=== PATIENT | male | born 1940 | race Caucasian/White ===

== ENCOUNTER 2016-09-04 09:42 | Inpatient (IN) | payer MEDICARE, BC ==
[2016-09-04] MEDS ORDERED: Sodium Chloride 0.9% 10 ML Syringe FLUSH PRN ×3 (10:12→13:20)
[2016-09-04] MEDS ORDERED: Lactated Ringers 1,000 ML IV SCH ×2 (10:15→11:45)
[2016-09-04] MEDS ORDERED: Albuterol/Ipratropium 3.0-0.5 MG/3 ML Neb Soln NEB ONE (10:44)
--- NOTE | 2016-09-04 10:48 | EDM.PDOC ---
ED HISTORY OF PRESENT ILLNESS - General Chief Complaint: Respiratory Problem Stated Complaint: SHORTNESS OF BREATH,WEAKNESS,ASTHMA Time Seen by Provider: 09/04/16 10:11 Source: Reports: Patient, Old records, RN notes reviewed History Limitations: Reports: No limitations - History of Present Illness INITIAL COMMENTS - FREE TEXT/NARRATIVE: 75-year-old gentleman presents emergency department today for ongoing shortness of breath he is recently returned from [place] he's been ill for about one month has tried a variety of antibiotics including azithromycin and Bactrim as well as inhalers he continues to be short of breath no overt fevers he 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 but is unsure - Related Data Allergies/ADRs: Allergies Allergy/AdvReac Type Severity Reaction Status Date / Time atorvastatin Allergy Cannot Verified 09/16/13 07:11 Remember Penicillins Allergy Cannot Verified 09/16/13 07:11 Remember simvastatin Allergy Cannot Verified 09/16/13 07:11 Remember Home Meds: Home Meds ALPRAZolam [Xanax] 0.25 mg PO DAILY 09/04/16 [History] Albuterol Sulfate [Proair Respiclick] 2 puff INH ASDIRECTED 09/04/16 [History] Albuterol/Ipratropium [DuoNeb 3.0-0.5 MG/3 ML] 3 ml INH BID 09/04/16 [History] Apixaban [Eliquis] 5 mg PO BID 09/04/16 [History] Aspirin 325 mg PO DAILY 09/04/16 [History] Azithromycin [Zithromax] 250 mg PO DAILY 09/04/16 [History] Benazepril [Lotensin] 20 mg PO DAILY 09/04/16 [History] Benzonatate [Tessalon Perles] 200 mg PO TID PRN 09/04/16 [History] Fexofenadine [Lynn] 180 mg PO DAILY 09/04/16 [History] Fluticasone Furoate [Arnuity Ellipta] 1 puff INH DAILY 09/04/16 [History] Levofloxacin 500 mg PO DAILY 09/04/16 [History] Levothyroxine Sodium [Synthroid] 200 mcg PO DAILY 09/04/16 [History] Metoprolol Tartrate 12.5 mg PO BID 09/04/16 [History] Montelukast [Singulair] 10 mg PO DAILY 09/04/16 [History] Multivitamin [Multivitamins] 1 tab PO DAILY 09/04/16 [History] Pitavastatin Calcium [Livalo] 1 mg PO DAILY 09/04/16 [History] Prednisone [IJD: predniSONE] 20 mg PO BID 09/04/16 [History] Sotalol HCl [Sotalol AF] 120 mg PO BID 09/04/16 [History] Sulfamethoxazole/Trimethoprim [Sulfamethoxazole-Tmp Ds Tablet] 1 tab PO BID 06/22 [History] Tamsulosin [Flomax] 0.4 mg PO DAILY 09/04/16 [History] Past Medical History HEENT History: Reports: Cataract Cardiovascular History: Reports: Afib, High cholesterol, Hypertension Respiratory History: Reports: Asthma Musculoskeletal History: Reports: Back pain, chronic Endocrine/Metabolic History: Reports: Hypothyroidism - Past Surgical History GI Surgical History: Reports: Appendectomy, Cholecystectomy Musculoskeletal Surgical History: Reports: Knee replacement Other Musculoskeletal Surgeries/Procedures:: fused neck Social & Family History - Tobacco Use Smoking Status *Q: Never Smoker - Caffeine Use Caffeine Use: Reports: Coffee - Recreational Drug Use Recreational Drug Use: No ED ROS GENERAL - Review of Systems Review Of Systems: See Below Constitutional: Reports: weakness, night sweats. Denies: fever, chills HEENT: Reports: No symptoms Respiratory: Reports: Shortness of Breath, Wheezing, Cough, Sputum Cardiovascular: Reports: No symptoms GI/Abdominal: Reports: No symptoms : Reports: no symptoms Musculoskeletal: Reports: no symptoms Skin: Reports: no symptoms Neurological: Reports: No Symptoms ED EXAM, GENERAL - Physical Exam Exam: See Below Free Text/Narrative:: General: Male, not in any distress, alert and oriented x3 HEENT: head is atraumatic normocephalic, eyes pupils equal round reactive to light, sclera clear no conjunctivitis appreciated. Ears tympanic membranes clear and mcfadden landmarks and light reflex are present bilaterally canals are clear. Nose no septal deviation, nares are clear, no blood present. Mouth mucosa is moist and pink no erythema or exudate noted in soft palate, tongue is midline uvula is midline, dentition is intact. Neck: Supple no thyromegaly no tracheal deviation. Nodes: Cervical nodes subclavicular nodes nontender no palpable lymphadenopathy noted. Lungs: Wheezing can be appreciated on the inspiratory and expiratory bilaterally CV: Irregularly irregular rate and rhythm S1 and S2 appreciated no murmurs rubs or gallops noted. Abdomen: Soft, nontender, no palpable masses or organomegaly appreciated, no distention no guarding bowel sounds are present, . Neuro: Cranial nerves II through XII grossly intact Skin: Warm and dry, intact Extremities: No lower extremity edema appreciated, Course - Vital Signs Last Recorded V/S: Last Vital Signs Temp 96.6 F 09/04/16 09:52 Pulse 76 09/04/16 12:07 Resp 15 09/04/16 12:07 BP 108/58 L 09/04/16 12:07 Pulse Ox 95 09/04/16 12:07 - Orders/Labs/Meds Orders: Active Orders 24 hr Category Date Time Status Peripheral IV Care [RC] . DIRECTED Care 09/04/16 10:13 Inactive COCCIDIOIDES,AB IGG AND IGM [REF] Routine Lab 09/04/16 10:55 Received CULTURE BLOOD [BC] Urgent Lab 09/04/16 10:25 Received CULTURE BLOOD [BC] Urgent Lab 09/04/16 10:30 Received UA W/MICROSCOPIC [URIN] Stat Lab 09/04/16 10:12 Uncollected Blood Culture x2 Reflex Set [OM.PC] Urgent Oth 09/04/16 10:12 Ordered Medication Orders Acetaminophen (Tylenol) 650 mg PO Q4H PRN PRN Reason: Pain (Mild 1-3)/fever Albuterol (Proventil Neb Soln) 2.5 mg NEB Q4H PRN PRN Reason: Shortness Of Breath/wheezing Albuterol/Ipratropium (Duoneb 3.0-0.5 Mg/3 Ml) 3 ml NEB QID KACEY Docusate Sodium (Colace) 100 mg PO BID PRN PRN Reason: Constipation Enoxaparin Sodium (Lovenox) 40 mg SUBCUT DAILY [facility] Sodium Chloride (Normal Saline) 1,000 mls @ 125 mls/hr IV ASDIRECTED KACEY Magnesium Hydroxide (Milk Of Magnesia) 30 ml PO Q12H PRN PRN Reason: Constipation Ondansetron HCl (Zofran) 4 mg IV Q4H PRN PRN Reason: Nausea/Vomiting Oxycodone HCl (Oxycodone) 5 mg PO Q4H PRN PRN Reason: Pain (moderate 4-6) Polyethylene Glycol (Miralax) 17 gm PO DAILY PRN PRN Reason: Constipation Sodium Chloride (Saline Flush) 10 ml FLUSH ASDIRECTED PRN PRN Reason: Keep Vein Open Labs: Laboratory Tests 09/04/16 09/04/16 09/04/16 Range/Units 10:12 10:15 10:15 WBC 19.9 H (4.5-11.0) K/uL RBC 4.67 (4.30-5.90) M/uL Hgb 14.7 (12.0-15.0) g/dL Hct 43.2 (40.0-54.0) % MCV 93 (80-98) fL MCH 32 H (27-31) pg MCHC 34 (32-36) % Plt Count 342 (150-400) K/uL Neut % (Auto) 86 H (36-66) % Lymph % (Auto) 6 L (24-44) % [place] % (Auto) 6 (2-6) % Eos % (Auto) 1 L (2-4) % Baso % (Auto) 0 (0-1) % PT 12.4 H (9.5-12.0) sec INR 1.16 (0.80-1.20) APTT 27.8 (27.0-36.0) sec Puncture Site Lt radial ABG pH 7.432 (7.350-7.450) ABG pCO2 31.3 L (35.0-42.0) mmHg ABG pO2 82.9 (75.0-100.0) mmHg ABG HCO3 20.5 L (22.0-26.0) mmol/L ABG Total CO2 17.9 L (23.0-27.0) mmol/L ABG O2 Saturation 96.3 (95.0-98.0) % ABG O2 Content 18.8 (15.0-23.0) %vol ABG Base Excess -2.3 mm/L ABG Hemoglobin 14.1 (13.5-18.0) g/dL ABG Oxyhemoglobin 94.8 % ABG Carboxyhemoglobin 1.1 (0.0-1.6) % ABG Methemoglobin 0.5 % Malcom Test Passed O2 Delivery Device Nasal cannula Oxygen Flow Rate 3 L Sodium (140-148) mmol/L Potassium (3.6-5.2) mmol/L Chloride (100-108) mmol/L Carbon Dioxide (21-32) mmol/L Anion Gap (5.0-14.0) mmol/L BUN (7-18) mg/dL Creatinine (0.8-1.3) mg/dL Est Cr Clr Drug Dosing mL/min Estimated GFR (MDRD) (>60) Glucose (74-106) mg/dL Lactic Acid (0.4-2.0) mmol/L Calcium (8.5-10.1) mg/dL Total Bilirubin (0.2-1.0) mg/dL AST (15-37) U/L ALT (12-78) U/L Alkaline Phosphatase (46-116) U/L Troponin I (0.000-0.056) ng/mL Total Protein (6.4-8.2) g/dL Albumin (3.4-5.0) g/dL Globulin (2.3-3.5) g/dL Albumin/Globulin Ratio (1.2-2.2) 09/04/16 09/04/16 Range/Units 10:15 10:15 WBC (4.5-11.0) K/uL RBC (4.30-5.90) M/uL Hgb (12.0-15.0) g/dL Hct (40.0-54.0) % MCV (80-98) fL MCH (27-31) pg MCHC (32-36) % Plt Count (150-400) K/uL Neut % (Auto) (36-66) % Lymph % (Auto) (24-44) % [place] % (Auto) (2-6) % Eos % (Auto) (2-4) % Baso % (Auto) (0-1) % PT (9.5-12.0) sec INR (0.80-1.20) APTT (27.0-36.0) sec Puncture Site ABG pH (7.350-7.450) ABG pCO2 (35.0-42.0) mmHg ABG pO2 (75.0-100.0) mmHg ABG HCO3 (22.0-26.0) mmol/L ABG Total CO2 (23.0-27.0) mmol/L ABG O2 Saturation (95.0-98.0) % ABG O2 Content (15.0-23.0) %vol ABG Base Excess mm/L ABG Hemoglobin (13.5-18.0) g/dL ABG Oxyhemoglobin % ABG Carboxyhemoglobin (0.0-1.6) % ABG Methemoglobin % Malcom Test O2 Delivery Device Oxygen Flow Rate L Sodium 133 L (140-148) mmol/L Potassium 4.4 (3.6-5.2) mmol/L Chloride 98 L (100-108) mmol/L Carbon Dioxide 27 (21-32) mmol/L Anion Gap 12.4 (5.0-14.0) mmol/L BUN 24 H (7-18) mg/dL Creatinine 1.1 (0.8-1.3) mg/dL Est Cr Clr Drug Dosing 59.90 mL/min Estimated GFR (MDRD) > 60 (>60) Glucose 141 H (74-106) mg/dL Lactic Acid 1.4 (0.4-2.0) mmol/L Calcium 7.9 L (8.5-10.1) mg/dL Total Bilirubin 1.5 H (0.2-1.0) mg/dL AST 25 (15-37) U/L ALT 62 (12-78) U/L Alkaline Phosphatase 63 (46-116) U/L Troponin I < 0.017 (0.000-0.056) ng/mL Total Protein 6.7 (6.4-8.2) g/dL Albumin 3.0 L (3.4-5.0) g/dL Globulin 3.7 H (2.3-3.5) g/dL Albumin/Globulin Ratio 0.8 L (1.2-2.2) Meds: Medications Generic Name Dose Route Start Last Admin Trade Name Freq PRN Reason Stop Dose Admin Acetaminophen 650 mg 09/04/16 13:20 Tylenol PO Q4H PRN Pain (Mild 1-3)/fever Albuterol 2.5 mg 09/04/16 13:20 Proventil Neb Soln NEB Q4H PRN Shortness Of Breath/wheezing Albuterol/Ipratropium 3 ml 09/04/16 16:00 Duoneb 3.0-0.5 Mg/3 Ml NEB QID KACEY Docusate Sodium 100 mg 09/04/16 13:20 Colace PO BID PRN Constipation Enoxaparin Sodium 40 mg 09/04/16 13:20 Lovenox SUBCUT DAILY KACEY Sodium Chloride 1,000 mls @ 125 mls/hr 09/04/16 13:20 Normal Saline IV ASDIRECTED KACEY Magnesium Hydroxide 30 ml 09/04/16 13:20 Milk Of Magnesia PO Q12H PRN Constipation Ondansetron HCl 4 mg 09/04/16 13:20 Zofran IV Q4H PRN Nausea/Vomiting Oxycodone HCl 5 mg 09/04/16 13:20 Oxycodone PO Q4H PRN Pain (moderate 4-6) Polyethylene Glycol 17 gm 09/04/16 13:20 Miralax PO DAILY PRN Constipation Sodium Chloride 10 ml 09/04/16 13:20 Saline Flush FLUSH ASDIRECTED PRN Keep Vein Open Discontinued Medications Generic Name Dose Route Start Last Admin Trade Name Freq PRN Reason Stop Dose Admin Albuterol/Ipratropium 3 ml 09/04/16 10:44 09/04/16 10:51 Duoneb 3.0-0.5 Mg/3 Ml NEB 09/04/16 10:45 3 ml ONETIME ONE Administration Lactated Ringer's 1,000 mls @ 999 mls/hr 09/04/16 10:15 09/04/16 10:20 Ringers, Lactated IV 999 mls/hr ASDIRECTED KACEY Administration Lactated Ringer's 1,000 mls @ 125 mls/hr 09/04/16 11:45 09/04/16 11:48 Ringers, Lactated IV 125 mls/hr ASDIRECTED KACEY Administration Sodium Chloride 75 mls @ 3.5 mls/sec 09/04/16 12:15 09/04/16 12:34 Normal Saline IV 09/04/16 13:00 3.5 mls/sec ASDIRECTED KACEY Administration Iopamidol 100 ml 09/04/16 12:13 09/04/16 12:35 Isovue-300 (61%) IV 09/05/16 12:14 100 ml . DIRECTED PRN Administration RADIOLOGY EXAM Sodium Chloride 10 ml 09/04/16 10:12 09/04/16 10:20 Saline Flush FLUSH 10 ml ASDIRECTED PRN Administration Keep Vein Open Sodium Chloride 10 ml 09/04/16 12:13 09/04/16 12:33 Saline Flush FLUSH 10 ml ONETIME PRN Administration per radiology protocol - Re-Assessments/Exams Free Text/Narrative Re-Assessment/Exam: 09/04/16 12:15 curb 65 score is 4 Departure - Departure Time of Disposition: 13:23 Disposition: Admitted As Inpatient 64 Condition: fair Clinical Impression: SOB (shortness of breath) - My Orders Last 24 Hours: My Active Orders 09/04/16 10:12 UA W/MICROSCOPIC [URIN] Stat Blood Culture x2 Reflex Set [OM.PC] Urgent 09/04/16 10:13 Peripheral IV Care [RC] . DIRECTED 09/04/16 10:25 CULTURE BLOOD [BC] Urgent 09/04/16 10:30 CULTURE BLOOD [BC] Urgent 09/04/16 10:55 COCCIDIOIDES,AB IGG AND IGM [REF] Routine - Assessment/Plan Last 24 Hours: My Active Orders 09/04/16 10:12 UA W/MICROSCOPIC [URIN] Stat Blood Culture x2 Reflex Set [OM.PC] Urgent 09/04/16 10:13 Peripheral IV Care [RC] . 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 [place] Manifestations = hypoxia Location of injury = home Lab values = WBC elevated 19.9 consistent with a leukocytosis, INR stable at 1.16 ABG reveals pH of 7.43 PCO2 31.3 a PO2 of 82.9 bicarbonate 20.5 sodium low at 133 consistent hyponatremia BUN elevated at 24 lactic acid normal at 1.4 total bilirubin elevated 1.5 consistent hyperbilirubinemia, troponin is negative albumin low at 2.0 consistent hypoalbuminemia chest x-ray unremarkable per radiology read Plan Discussed the case with hospitalist it professional he agreed to evaluate the patient emergency department for admission Patient was in agreement with the plan all questions were answered, This note was dictated using [employer] voice recognition software please call with any questions.
--- NOTE | 2016-09-04 11:16 | CR ---
Heart size within normal limits. Streaky density right lung base. Streaky density left lung base wit h faint nodular density left sixth rib anteriorly. It has some central lucency to it. Overall findin gs may be compatible with atelectasis rather than infiltrate but recommend short-term radiographic f ollow-up for clearing of the left lung nodularity in 2 weeks. If this persists then recommend CT. Kina anna discussed with Officer.
[2016-09-04] MEDS ORDERED: Iopamidol 612 MG/ML 100 ML Bottle IV PRN (12:13)
[2016-09-04] MEDS ORDERED: Sodium Chloride 0.9% 75 ML IV SCH (12:15)
--- NOTE | 2016-09-04 13:02 | CT ---
CT chest Indication: Hypoxia. Total DLP 475. Comparison: 12/09/2013 Findings: Mildly enlarged AP window lymph node. A few small prevascular space lymph nodes and right paratracheal space lymph nodes are new compared to prior. No main pulmonary artery embolus. There is hazy groundglass density left upper lobe with a small cavitary lesion at 6 mm. Micronodularity is e vident within the left upper lobe as well. Primary nodule superior subareolar right lower lobe is ne w. This measures 7 mm. Atelectasis within the lung bases. No focal consolidation. Adrenal glands are within normal limits. Fatty infiltration of the pancreas. Fatty infiltration of the liver. Impression: 1. Micronodularity within the left upper lobe and hazy groundglass density along with a small cavita ry lesion. Any skin compatible with fungal infection. 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 Recommend CT follow- up, short-term
[2016-09-04] MEDS ORDERED: Acetaminophen 325 MG Tab PO PRN (13:20)
[2016-09-04] MEDS ORDERED: Polyethylene Glycol 3350 Powder 17 GM Packet PO PRN (13:20)
[2016-09-04] MEDS ORDERED: oxyCODONE 5 MG Tab PO PRN (13:20)
[2016-09-04] MEDS ORDERED: Ondansetron 4 MG/2 ML SDV IV PRN (13:20)
[2016-09-04] MEDS ORDERED: Albuterol 0.083% 2.5 MG/3 ML Neb Soln NEB PRN ×2 (13:20→16:33)
[2016-09-04] MEDS ORDERED: Docusate Sodium 100 MG Cap PO PRN (13:20)
[2016-09-04] MEDS ORDERED: Sodium Chloride 0.9% 1,000 ML IV SCH (13:20)
[2016-09-04] MEDS ORDERED: Magnesium Hydroxide 400 MG/5 ML Susp 30 ML Cup PO PRN (13:20)
[2016-09-04] MEDS ORDERED: Enoxaparin 40 MG/0.4 ML Syringe SUBCUT SCH (14:00)
[2016-09-04] MEDS: Albuterol/Ipratropium 3.0-0.5 MG/3 ML Neb Soln NEB SCH ×2 (14:41→21:12)
[2016-09-04] MEDS ORDERED: Benzonatate 100 MG Cap PO PRN (16:38)
[2016-09-04] MEDS: Fluconazole/Normal Saline 400 MG in Premix Bag 1 BAG IV SCH (17:40)
--- NOTE | 2016-09-04 19:29 | PCM.HP ---
H&P History of Present Illness - General Date of Service: 09/04/16 Admit Problem/Dx: Admission Diagnosis/Problem Admission Diagnosis/Problem Hypoxia Source of Information: Patient, Family, Provider, RN notes reviewed History Limitations: Reports: No limitations - History of Present Illness Initial Comments - Free Text/Narative: Mr. Christianson is a 75-year-old gentleman who is admitted through the emergency department with symptoms of progressive weakness, fever, sweats, shortness of breath, and hypoxia. He has not felt well since late June or early July, at that time he developed symptoms of respiratory tract infection and was seen for evaluation in [place]. He was given a course of oral antibiotic therapy with azithromycin and when he returned for his followup appointment one week later felt significantly improved. He did well for another week but then developed recurrent symptoms with shortness of breath and cough. About the time his symptoms recurred he and his were in the process of returning to [place] for the summer months. After arriving back in [place] they did go to see his primary care provider Dr. Santizo, a second course of antibiotics were prescribed but unfortunately over the past week his symptoms have progressed. Because of persistent shortness of breath he presented to the emergency department for further evaluation and management. Hypoxia was documented on initial assessment, vital signs were otherwise stable. White blood cell count is normal, chest x-ray suggests infiltrate in the left lung. CT scan of the chest was obtained and did show evidence of infiltrate as well as a very small cavitary lesion, findings suggestive of coccidiomycosis. Serology has been sent to evaluate for underlying fungal infection. - Related Data Allergies/Adverse Reactions: Allergies Allergy/AdvReac Type Severity Reaction Status Date / Time atorvastatin Allergy Cannot Verified 09/16/13 07:11 Remember Penicillins Allergy Cannot Verified 09/16/13 07:11 Remember simvastatin Allergy Cannot Verified 09/16/13 07:11 Remember Home Medications: Home Meds ALPRAZolam [Xanax] 0.25 mg PO DAILY 09/04/16 [History] Albuterol Sulfate [Proair Respiclick] 2 puff INH ASDIRECTED 09/04/16 [History] Albuterol/Ipratropium [DuoNeb 3.0-0.5 MG/3 ML] 3 ml INH BID 09/04/16 [History] Apixaban [Eliquis] 5 mg PO BID 09/04/16 [History] Aspirin 325 mg PO DAILY 09/04/16 [History] Azithromycin [Zithromax] 250 mg PO DAILY 09/04/16 [History] Benazepril [Lotensin] 20 mg PO DAILY 09/04/16 [History] Benzonatate [Tessalon Perles] 200 mg PO TID PRN 09/04/16 [History] Fexofenadine [Lynn] 180 mg PO DAILY 09/04/16 [History] Fluticasone Furoate [Arnuity Ellipta] 1 puff INH DAILY 09/04/16 [History] Levofloxacin 500 mg PO DAILY 09/04/16 [History] Levothyroxine Sodium [Synthroid] 200 mcg PO DAILY 09/04/16 [History] Metoprolol Tartrate 12.5 mg PO BID 09/04/16 [History] Montelukast [Singulair] 10 mg PO DAILY 09/04/16 [History] Multivitamin [Multivitamins] 1 tab PO DAILY 09/04/16 [History] Pitavastatin Calcium [Livalo] 1 mg PO DAILY 09/04/16 [History] Prednisone [IJD: predniSONE] 20 mg PO BID 09/04/16 [History] Sotalol HCl [Sotalol AF] 120 mg PO BID 09/04/16 [History] Sulfamethoxazole/Trimethoprim [Sulfamethoxazole-Tmp Ds Tablet] 1 tab PO BID 06/22 [History] Tamsulosin [Flomax] 0.4 mg PO DAILY 09/04/16 [History] Past Medical History HEENT History: Reports: Cataract Cardiovascular History: Reports: Afib, High cholesterol, Hypertension Respiratory History: Reports: Asthma Musculoskeletal History: Reports: Back pain, chronic Endocrine/Metabolic History: Reports: Hypothyroidism Oncologic (Cancer) History: Reports: Prostate Other Oncologic History: 2014 - Past Surgical History GI Surgical History: Reports: Appendectomy, Cholecystectomy Musculoskeletal Surgical History: Reports: Knee replacement Other Musculoskeletal Surgeries/Procedures:: fused neck Oncologic Surgical History: Reports: Other (see below) Other Oncologic Surgeries/Procedures: readiation to prostate Social & Family History - Family History HEENT: Reports: Cataract, Hearing impairment Cardiac: Reports: CAD Musculoskeletal: Reports: Arthritis, Back pain, chronic Neurological: Reports: Neuropathy, diabetic Endocrine/Metabolic: Reports: Diabetes, type II, Hypothyroidism - Tobacco Use Smoking Status *Q: Never Smoker Second Hand Smoke Exposure: No - Caffeine Use Caffeine Use: Reports: Coffee Other Caffeine Use: 1cup/day - Alcohol Use Date of Last Drink: 06/29/16 Time of Last Drink: 20:00 - Recreational Drug Use Recreational Drug Use: No H&P Review of Systems - Review of Systems: Review Of Systems: See Below General: Reports: fever, chills, weakness, night sweats, diaphoresis, decreased appetite HEENT: Reports: no symptoms Pulmonary: Reports: Shortness of Breath, Cough, Sputum. Denies: Wheezing, Pleuritic Chest Pain, Hemoptysis Cardiovascular: Reports: dyspnea on exertion. Denies: chest pain, palpitations , orthopnea, PND, edema, lightheadedness Gastrointestinal: Reports: No symptoms Genitourinary: Reports: no symptoms Musculoskeletal: Reports: no symptoms Skin: Reports: no symptoms Psychiatric: Reports: no symptoms Neurological: Reports: No Symptoms Hematologic/Lymphatic: Reports: no symptoms Immunologic: Reports: no symptoms Exam - Exam Exam: See Below - Vital Signs Vital Signs: Last Vital Signs Temp 99.0 F 09/04/16 13:32 Pulse 86 09/04/16 14:43 Resp 16 09/04/16 13:32 BP 109/62 09/04/16 13:32 Pulse Ox 96 09/04/16 14:43 Weight: 229 lb - Exam Quality Assessment: supplemental oxygen, DVT prophylaxis General: alert, oriented, cooperative, moderate distress HEENT: Conjunctiva clear, Hearing intact, Mucosa moist & pink, Nares patent, Normal nasal septum, Posterior pharynx clear, Pupils equal, Pupils reactive Neck: supple, trachea midline, +2 carotid pulse wo bruit Lungs: Normal respiratory effort, Rhonchi. No: Decreased breath sounds, Crackles, Rales, Rub, Stridor Cardiovascular: regular rate, normal S1, irregular rhythm. No: bradycardia, tachycardia, systolic murmur, diastolic murmur Abdomen: normal bowel sounds, soft Back Exam: normal inspection, full range of motion, NT Extremities: 3, normal inspection, 10 Skin: warm, dry, intact Neurological: cranial nerves intact, strength equal bilateral, normal speech, normal tone, sensation intact. No: focal deficit Neuro Extensive - Mental Status: alert, oriented x3, normal mood/affect, normal cognition, memory intact - Patient Data Lab Results last 24 hrs: Laboratory Results - last 24 hr 09/04/16 Range/Units 13:23 Urine Color Yellow Urine Appearance Clear Urine pH 7.0 (4.5-8.0) Ur Specific [place] 1.005 L (1.008-1.030) Urine Protein Negative (NEGATIVE) mg/dL Urine Glucose (UA) Normal (NEGATIVE) mg/dL Urine Ketones Negative (NEGATIVE) mg/dL Urine Occult Blood Negative (NEGATIVE) Urine Nitrite Negative (NEGAITVE) Urine Bilirubin Negative (NEGATIVE) Urine Urobilinogen Normal (NORMAL) mg/dL Ur Leukocyte Esterase Negative (NEGATIVE) Urine RBC 0-5 (0-5) Urine WBC 0-5 (0-5) Ur Epithelial Cells Few Amorphous Sediment Not seen Urine Bacteria Few Urine Mucus Few Result Diagrams: 09/04/16 10:15 09/04/16 10:15 *Q Meaningful Use (ADM) - VTE *Q VTE Criteria *Q: VTE Pharmacological Contraindications *Q: High INR Value - VTE Risk Assess *Q Each Risk Factor Represents 1 Point: Obesity (BMI greater than 30), Serious Lung Disease Including Pneumonia, Less than 1 Month Total Score 1 Point Risk Factors: 2 Each Risk Factor Represents 2 Points: None Total Score 2 Point Risk Factors: 0 Each Risk Factor Represents 3 Points: Age 75 Years or Greater Total Score 3 Point Risk Factors: 3 Each Risk Factor Represents 5 Points: None Total Score 5 Point Risk Factors: 0 Venous Thromboembolism Risk Factor Score *Q: 5 - Stroke *Q Stroke Criteria *Q: - AMI *Q AMI Criteria *Q: Problem List Initiated/Reviewed/Updated: Yes Orders Last 24hrs: Active Orders 24 hr Category Date Time Status Patient Status [ADT] Routine ADT 09/04/16 13:20 Active Intake and Output [RC] QSHIFT Care 09/04/16 13:20 Active Notify Provider Vital Signs [RC] ASDIRECTED Care 09/04/16 13:20 Active Oxygen Therapy [RC] PRN Care 09/04/16 13:20 Active Peripheral IV Care [RC] . DIRECTED Care 09/04/16 13:20 Active Pulse Oximetry [RC] CONTINUOUS Care 09/04/16 13:20 Active RT Aerosol Therapy [RC] ASDIRECTED Care 09/04/16 13:20 Active RT Aerosol Therapy [RC] ASDIRECTED Care 09/04/16 16:34 Active Up ad Nora [RC] ASDIRECTED Care 09/04/16 13:20 Active VTE/DVT Education [RC] Per Unit Routine Care 09/04/16 13:20 Active Vital Signs [RC] Q4H Care 09/04/16 13:20 Active Regular Diet [DIET] Diet 09/04/16 Lunch Active CBC WITH AUTO DIFF [HEME] AM Lab 09/05/16 05:11 Ordered COMPREHENSIVE METABOLIC PN,CMP [CHEM] AM Lab 09/05/16 05:11 Ordered ALPRAZolam [Xanax] Med 09/05/16 09:00 Active 0.25 mg PO DAILY Acetaminophen [Tylenol] Med 09/04/16 13:20 Active 650 mg PO Q4H PRN Albuterol [Proventil Neb Soln] Med 09/04/16 13:20 Active 2.5 mg NEB Q4H PRN Albuterol/Ipratropium [DuoNeb 3.0-0.5 MG/3 ML] Med 09/04/16 15:00 Active 3 ml NEB QIDRT Apixaban [Eliquis] Med 09/04/16 21:00 Active 5 mg PO BID Aspirin [Ecotrin] Med 09/05/16 09:00 Active 325 mg PO DAILY Benazepril [Lotensin] Med 09/05/16 09:00 Active 20 mg PO DAILY Benzonatate [Tessalon Perles] Med 09/04/16 16:38 Active 200 mg PO TID PRN Docusate Sodium [Colace] Med 09/04/16 13:20 Active 100 mg PO BID PRN Fluconazole/Normal Saline [Diflucan in NS 400 MG/200 ML Med 09/04/16 17:00 Active ] 400 mg Premix Bag 1 bag IV Q24H Levofloxacin/Dextrose 5%-Water [Levaquin in D5W 500 MG/ Med 09/04/16 19:00 Active 100 ML] 500 mg Premix Bag 1 bag IV Q24H Levothyroxine [Synthroid] Med 09/05/16 07:30 Active 200 mcg PO DAILY@0730 Magnesium Hydroxide [Milk of Magnesia] Med 09/04/16 13:20 Active 30 ml PO Q12H PRN Metoprolol Tartrate [Lopressor] Med 09/04/16 21:00 Active 12.5 mg PO BID Montelukast [Singulair] Med 09/04/16 21:00 Active 10 mg PO BEDTIME Ondansetron [Zofran] Med 09/04/16 13:20 Active 4 mg IV Q4H PRN Pitavastatin Calcium [Livalo] Med 09/05/16 09:00 Pending 1 mg PO DAILY Polyethylene Glycol 3350 [MiraLAX] Med 09/04/16 13:20 Active 17 gm PO DAILY PRN Sodium Chloride 0.9% [Normal Saline] 1,000 ml Med 09/04/16 13:20 Active IV ASDIRECTED Sodium Chloride 0.9% [Saline Flush] Med 09/04/16 13:20 Active 10 ml FLUSH ASDIRECTED PRN Sotalol [Betapace] Med 09/04/16 21:00 Active 120 mg PO BID oxyCODONE Med 09/04/16 13:20 Active 5 mg PO Q4H PRN Peripheral IV Insertion Adult [OM.PC] Routine Oth 09/04/16 13:20 Ordered Resuscitation Status Routine Resus Stat 09/04/16 12:37 Ordered Medication Orders Acetaminophen (Tylenol) 650 mg PO Q4H PRN PRN Reason: Pain (Mild 1-3)/fever Albuterol (Proventil Neb Soln) 2.5 mg NEB Q4H PRN PRN Reason: Shortness Of Breath/wheezing Albuterol/Ipratropium (Duoneb 3.0-0.5 Mg/3 Ml) 3 ml NEB QIDRT [facility] Last Admin: 09/04/16 14:41 Dose: 3 ml Alprazolam (Xanax) 0.25 mg PO DAILY [facility] Apixaban (Eliquis) 5 mg PO BID [facility] Aspirin (Ecotrin) 325 mg PO DAILY [facility] Benazepril HCl (Lotensin) 20 mg PO DAILY [facility] Benzonatate (Tessalon Perles) 200 mg PO TID PRN PRN Reason: Cough Docusate Sodium (Colace) 100 mg PO BID PRN PRN Reason: Constipation Sodium Chloride (Normal Saline) 1,000 mls @ 125 mls/hr IV ASDIRECTED [facility] Last Admin: 09/04/16 16:25 Dose: 125 mls/hr Fluconazole/Sodium Chloride (400 mg/ Premix) 200 mls @ 100 mls/hr IV Q24H [facility] Last Admin: 09/04/16 17:40 Dose: 100 mls/hr Levofloxacin/Dextrose 500 mg/ (Premix) 100 mls @ 100 mls/hr IV Q24H [facility] Levothyroxine Sodium (Synthroid) 200 mcg PO DAILY@0730 [facility] Magnesium Hydroxide (Milk Of Magnesia) 30 ml PO Q12H PRN PRN Reason: Constipation Metoprolol Tartrate (Lopressor) 12.5 mg PO BID [facility] Montelukast Sodium (Singulair) 10 mg PO BEDTIME [facility] Non-Formulary Medication (Pitavastatin Calcium [Livalo]) 1 mg PO DAILY [facility] Ondansetron HCl (Zofran) 4 mg IV Q4H PRN PRN Reason: Nausea/Vomiting Oxycodone HCl (Oxycodone) 5 mg PO Q4H PRN PRN Reason: Pain (moderate 4-6) Polyethylene Glycol (Miralax) 17 gm PO DAILY PRN PRN Reason: Constipation Sodium Chloride (Saline Flush) 10 ml FLUSH ASDIRECTED PRN PRN Reason: Keep Vein Open Sotalol HCl (Betapace) 120 mg PO BID [facility] Assessment/Plan Comment:: ASSESSMENT AND PLAN COCCIDIOMYCOSIS PULMONARY INFECTION-findings seem to be most consistent with this, including CT scan and history of probable exposure, having spent the winter in [place]. -Fluconazole 400 mg IV every 24 hours -Coccidiomycosis serology pending -Antibiotic coverage with levofloxacin 500 mg IV every 24 hours pending serology HYPOXIC RESPIRATORY FAILURE-secondary to infection as noted above -Supplemental oxygen as needed -Nebulizer therapy with albuterol and duo nebs HISTORY OF PAROXYSMAL ATRIAL FIBRILLATION-currently on anticoagulation with Elliquis -Hold current anticoagulation because of potential interaction with fluconazole -Discussed with patient options for ongoing anticoagulation -Continue other outpatient medical therapy MAINTENANCE ISSUES -DVT prophylaxis;current anticoagulation should provide adequate DVT prophylaxis -GI prophylaxis;none indicated -Palma catheter;not indicated -Nutrition;regular diet -Nicotine dependence;not required CODE STATUS-FULL CODE ADMISSION STATUS-patient will be admitted to inpatient status, expect at least a 2 night hospital stay for evaluation and management of problems as outlined above. At the time of this admission I do not reasonably expected evaluation and management of this problem will require more than a 96 hour hospital stay. DISPOSITION-anticipate discharge to home after the hospital stay. PRIMARY CARE PROVIDER-Dr. Santizo
[2016-09-04] MEDS: Levofloxacin/Dextrose 5%-Water 500 MG in Premix Bag 1 BAG IV SCH (19:34)
[2016-09-04] MEDS ORDERED: Pantoprazole 40 MG Tab.CR PO SCH (19:45)
[2016-09-04] MEDS ORDERED: Apixaban 5 MG Tab PO SCH (21:00)
[2016-09-04] MEDS: Montelukast 10 MG Tab PO SCH (21:10)
[2016-09-04] MEDS: Metoprolol Tartrate 25 MG Tab PO SCH (21:14)
[2016-09-04] MEDS: Sotalol 80 MG Tab PO SCH (21:14)
[2016-09-04] MEDS ORDERED: Albuterol/Ipratropium 3.0-0.5 MG/3 ML Neb Soln NEB SCH (22:00)
[2016-09-05] MEDS: Levothyroxine 100 MCG Tab PO SCH (07:03)
[2016-09-05] MEDS: Albuterol/Ipratropium 3.0-0.5 MG/3 ML Neb Soln NEB SCH ×4 (07:14→20:18)
[2016-09-05] MEDS: Sotalol 80 MG Tab PO SCH ×2 (08:08→20:25)
[2016-09-05] MEDS: Metoprolol Tartrate 25 MG Tab PO SCH ×2 (08:09→20:25)
[2016-09-05] MEDS: Aspirin 325 MG Tab.EC PO SCH (08:09)
[2016-09-05] MEDS: ALPRAZolam 0.25 MG Tab PO SCH (08:19)
[2016-09-05] MEDS: PITAVASTATIN CALCIUM 1 MG PO SCH (11:40)
--- NOTE | 2016-09-05 12:35 | PCM.PN ---
- General Info Date of Service: 09/05/16 Functional Status: Reports: pain controlled, tolerating diet, ambulating - Review of Systems General: Reports: Weakness. Denies: Fever, Chills Pulmonary: Reports: shortness of breath, cough. Denies: pleuritic chest pain, sputum, hemoptysis, wheezing Cardiovascular: Reports: Dyspnea on Exertion. Denies: Chest Pain, Palpitations , Orthopnea, PND, Edema, Lightheadedness Gastrointestinal: Reports: No symptoms Systems Review Comment:: This patient has felt modestly improved since yesterday, less short of breath, but with persistent cough. Vital signs have been stable and he has not had significant temperature elevation. - Patient Data Vitals - most recent: Last Vital Signs Temp 99.7 F 09/05/16 12:16 Pulse 76 09/05/16 08:09 Resp 16 09/05/16 12:16 BP 115/60 09/05/16 12:16 Pulse Ox 97 09/05/16 12:16 Weight - most recent: 229 lb I&O - last 24 hours: Intake & Output 09/04/16 09/05/16 09/05/16 22:59 06:59 14:59 Intake Total 591 1070 480 Output Total 950 Balance 591 120 480 Lab Results last 24 hrs: Laboratory Results - last 24 hr 09/04/16 09/05/16 09/05/16 Range/Units 13:23 04:20 04:20 WBC 14.3 H (4.5-11.0) K/uL RBC 4.14 L (4.30-5.90) M/uL Hgb 12.8 (12.0-15.0) g/dL Hct 38.8 L (40.0-54.0) % MCV 94 (80-98) fL MCH 31 (27-31) pg MCHC 33 (32-36) % Plt Count 248 (150-400) K/uL Neut % (Auto) 80 H (36-66) % Lymph % (Auto) 11 L (24-44) % [place] % (Auto) 8 H (2-6) % Eos % (Auto) 1 L (2-4) % Baso % (Auto) 0 (0-1) % Sodium 137 L (140-148) mmol/L Potassium 4.4 (3.6-5.2) mmol/L Chloride 105 (100-108) mmol/L Carbon Dioxide 28 (21-32) mmol/L Anion Gap 8.4 (5.0-14.0) mmol/L BUN 17 (7-18) mg/dL Creatinine 1.0 (0.8-1.3) mg/dL Est Cr Clr Drug Dosing 65.89 mL/min Estimated GFR (MDRD) > 60 (>60) Glucose 91 (74-106) mg/dL Calcium 7.3 L (8.5-10.1) mg/dL Total Bilirubin 0.8 (0.2-1.0) mg/dL AST 20 (15-37) U/L ALT 47 (12-78) U/L Alkaline Phosphatase 53 (46-116) U/L Total Protein 5.8 L (6.4-8.2) g/dL Albumin 2.4 L (3.4-5.0) g/dL Globulin 3.4 (2.3-3.5) g/dL Albumin/Globulin Ratio 0.7 L (1.2-2.2) Urine Color Yellow Urine Appearance Clear Urine pH 7.0 (4.5-8.0) Ur Specific [place] 1.005 L (1.008-1.030) Urine Protein Negative (NEGATIVE) mg/dL Urine Glucose (UA) Normal (NEGATIVE) mg/dL Urine Ketones Negative (NEGATIVE) mg/dL Urine Occult Blood Negative (NEGATIVE) Urine Nitrite Negative (NEGAITVE) Urine Bilirubin Negative (NEGATIVE) Urine Urobilinogen Normal (NORMAL) mg/dL Ur Leukocyte Esterase Negative (NEGATIVE) Urine RBC 0-5 (0-5) Urine WBC 0-5 (0-5) Ur Epithelial Cells Few Amorphous Sediment Not seen Urine Bacteria Few Urine Mucus Few Med Orders - Current: Current Medications Acetaminophen (Tylenol) 650 mg PO Q4H PRN PRN Reason: Pain (Mild 1-3)/fever Albuterol (Proventil Neb Soln) 2.5 mg NEB Q4H PRN PRN Reason: Shortness Of Breath/wheezing Albuterol/Ipratropium (Duoneb 3.0-0.5 Mg/3 Ml) 3 ml NEB QIDRT [facility] Last Admin: 09/05/16 10:50 Dose: 3 ml Alprazolam (Xanax) 0.25 mg PO DAILY [facility] Last Admin: 09/05/16 08:19 Dose: 0.25 mg Aspirin (Ecotrin) 325 mg PO DAILY [facility] Last Admin: 09/05/16 08:09 Dose: 325 mg Benazepril HCl (Lotensin) 20 mg PO DAILY [facility] Last Admin: 09/05/16 08:10 Dose: 20 mg Benzonatate (Tessalon Perles) 200 mg PO TID PRN PRN Reason: Cough Docusate Sodium (Colace) 100 mg PO BID PRN PRN Reason: Constipation Fluconazole/Sodium Chloride (400 mg/ Premix) 200 mls @ 100 mls/hr IV Q24H [facility] Last Admin: 09/04/16 17:40 Dose: 100 mls/hr Levofloxacin/Dextrose 500 mg/ (Premix) 100 mls @ 100 mls/hr IV Q24H [facility] Last Admin: 09/04/16 19:34 Dose: 100 mls/hr Levothyroxine Sodium (Synthroid) 200 mcg PO DAILY@0730 [facility] Last Admin: 09/05/16 07:03 Dose: 200 mcg Magnesium Hydroxide (Milk Of Magnesia) 30 ml PO Q12H PRN PRN Reason: Constipation Metoprolol Tartrate (Lopressor) 12.5 mg PO BID [facility] Last Admin: 09/05/16 08:09 Dose: 12.5 mg Montelukast Sodium (Singulair) 10 mg PO BEDTIME [facility] Last Admin: 09/04/16 21:10 Dose: 10 mg (Pitavastatin Calcium [Livalo] 1 Mg)*Pom* 1 mg PO DAILY [facility] Last Admin: 09/05/16 11:40 Dose: 1 mg Ondansetron HCl (Zofran) 4 mg IV Q4H PRN PRN Reason: Nausea/Vomiting Oxycodone HCl (Oxycodone) 5 mg PO Q4H PRN PRN Reason: Pain (moderate 4-6) Pantoprazole Sodium (Protonix) 40 mg PO DAILY@0730 [facility] Polyethylene Glycol (Miralax) 17 gm PO DAILY PRN PRN Reason: Constipation Sodium Chloride (Saline Flush) 10 ml FLUSH ASDIRECTED PRN PRN Reason: Keep Vein Open Sotalol HCl (Betapace) 120 mg PO BID [facility] Last Admin: 09/05/16 08:08 Dose: 120 mg Warfarin Sodium (Coumadin) 7.5 mg PO ONETIME ONE Stop: 09/05/16 12:32 Discontinued Medications Albuterol (Proventil Neb Soln) 2.5 mg NEB Q4HRRT PRN PRN Reason: Dyspnea Albuterol/Ipratropium (Duoneb 3.0-0.5 Mg/3 Ml) 3 ml NEB ONETIME ONE Stop: 09/04/16 10:45 Last Admin: 09/04/16 10:51 Dose: 3 ml Albuterol/Ipratropium (Duoneb 3.0-0.5 Mg/3 Ml) 3 ml NEB QID [facility] Apixaban (Eliquis) 5 mg PO BID [facility] Enoxaparin Sodium (Lovenox) 40 mg SUBCUT DAILY [facility] Last Admin: 09/04/16 16:31 Dose: 40 mg Lactated Ringer's (Ringers, Lactated) 1,000 mls @ 999 mls/hr IV ASDIRECTED [facility] Last Admin: 09/04/16 10:20 Dose: 999 mls/hr Lactated Ringer's (Ringers, Lactated) 1,000 mls @ 125 mls/hr IV ASDIRECTED [facility] Last Admin: 09/04/16 11:48 Dose: 125 mls/hr Sodium Chloride (Normal Saline) 75 mls @ 3.5 mls/sec IV ASDIRECTED [facility] Stop: 09/04/16 13:00 Last Admin: 09/04/16 12:34 Dose: 3.5 mls/sec Sodium Chloride (Normal Saline) 1,000 mls @ 125 mls/hr IV ASDIRECTED [facility] Last Admin: 09/04/16 16:25 Dose: 125 mls/hr Iopamidol (Isovue-300 (61%)) 100 ml IV . DIRECTED PRN PRN Reason: RADIOLOGY EXAM Stop: 09/05/16 12:14 Last Admin: 09/04/16 12:35 Dose: 100 ml Pantoprazole Sodium (Protonix) 40 mg PO DAILY [facility] Last Admin: 09/04/16 21:12 Dose: 40 mg Sodium Chloride (Saline Flush) 10 ml FLUSH ASDIRECTED PRN PRN Reason: Keep Vein Open Last Admin: 09/04/16 10:20 Dose: 10 ml Sodium Chloride (Saline Flush) 10 ml FLUSH ONETIME PRN PRN Reason: per radiology protocol Last Admin: 09/04/16 12:33 Dose: 10 ml - Exam Quality Assessment: DVT prophylaxis General: alert, oriented, cooperative, mild distress Neck: supple Lungs: Decreased breath sounds, Rhonchi. No: Crackles, Rales, Rub, Wheezing Cardiovascular: Regular Rate, Regular Rhythm, No Murmurs Abdomen: bowel sounds present, soft, no tenderness, no distension Extremities: no edema Skin: warm, dry, intact - Problem List Review Problem List Initiated/Reviewed/Updated: Yes - My Orders Last 24 Hours: My Active Orders 09/04/16 12:37 Resuscitation Status Routine 09/04/16 13:20 Patient Status [ADT] Routine Intake and Output [RC] PRN Notify Provider Vital Signs [RC] ASDIRECTED Oxygen Therapy [RC] PRN Peripheral IV Care [RC] . DIRECTED Pulse Oximetry [RC] CONTINUOUS RT Aerosol Therapy [RC] ASDIRECTED Up ad Nora [RC] ASDIRECTED VTE/DVT Education [RC] Per Unit Routine Vital Signs [RC] Q4H Acetaminophen [Tylenol] 650 mg PO Q4H PRN Albuterol [Proventil Neb Soln] 2.5 mg NEB Q4H PRN Docusate Sodium [Colace] 100 mg PO BID PRN Magnesium Hydroxide [Milk of Magnesia] 30 ml PO Q12H PRN Ondansetron [Zofran] 4 mg IV Q4H PRN Polyethylene Glycol 3350 [MiraLAX] 17 gm PO DAILY PRN Sodium Chloride 0.9% [Saline Flush] 10 ml FLUSH ASDIRECTED PRN oxyCODONE 5 mg PO Q4H PRN Peripheral IV Insertion Adult [OM.PC] Routine 09/04/16 15:00 Albuterol/Ipratropium [DuoNeb 3.0-0.5 MG/3 ML] 3 ml NEB QIDRT 09/04/16 16:34 RT Aerosol Therapy [RC] ASDIRECTED 09/04/16 16:38 Benzonatate [Tessalon Perles] 200 mg PO TID PRN 09/04/16 17:00 Fluconazole/Normal Saline [Diflucan in NS 400 MG/200 ML] 400 mg Premix Bag 1 bag IV Q24H 09/04/16 19:00 Levofloxacin/Dextrose 5%-Water [Levaquin in D5W 500 MG/100 ML] 500 mg Premix Bag 1 bag IV Q24H 09/04/16 21:00 Metoprolol Tartrate [Lopressor] 12.5 mg PO BID Montelukast [Singulair] 10 mg PO BEDTIME Sotalol [Betapace] 120 mg PO BID 09/04/16 Lunch Regular Diet [DIET] 09/05/16 07:30 Levothyroxine [Synthroid] 200 mcg PO DAILY@0730 09/05/16 09:00 ALPRAZolam [Xanax] 0.25 mg PO DAILY Aspirin [Ecotrin] 325 mg PO DAILY Benazepril [Lotensin] 20 mg PO DAILY Pitavastatin Calcium [Livalo] 1 mg PO DAILY 09/05/16 12:31 Warfarin [Coumadin] 7.5 mg PO ONETIME ONE Convert IV to Saline Lock [OM.PC] Routine 09/05/16 12:33 INR,PT,PROTHROMBIN TIME [COAG] Urgent 09/06/16 05:00 BASIC METABOLIC PANEL,BMP [CHEM] Timed CBC WITH AUTO DIFF [HEME] Timed 09/06/16 05:11 INR,PT,PROTHROMBIN TIME [COAG] AM 09/06/16 07:30 Pantoprazole [ProTONIX] 40 mg PO DAILY@729 - Plan Plan:: ASSESSMENT AND PLAN COCCIDIOMYCOSIS PULMONARY INFECTION-findings seem to be most consistent with this, including CT scan and history of probable exposure, having spent the winter in [place]. -Fluconazole 400 mg IV every 24 hours -Coccidiomycosis serology pending -Antibiotic coverage with levofloxacin 500 mg IV every 24 hours pending serology HYPOXIC RESPIRATORY FAILURE-secondary to infection as noted above -Supplemental oxygen as needed -Nebulizer therapy with albuterol and duo nebs HISTORY OF PAROXYSMAL ATRIAL FIBRILLATION-Eliquis discontinued -Hold current anticoagulation because of potential interaction with fluconazole -Warfarin 7.5 mg by mouth today -INR now and in a.m. -Continue other outpatient medical therapy MAINTENANCE ISSUES -DVT prophylaxis;current anticoagulation should provide adequate DVT prophylaxis -GI prophylaxis;none indicated -Palma catheter;not indicated -Nutrition;regular diet -Nicotine dependence;not required CODE STATUS-FULL CODE ADMISSION STATUS-patient will be admitted to inpatient status, expect at least a 2 night hospital stay for evaluation and management of problems as outlined above. At the time of this admission I do not reasonably expected evaluation and management of this problem will require more than a 96 hour hospital stay. DISPOSITION-anticipate discharge to home after the hospital stay. PRIMARY CARE PROVIDER-Dr. Santizo
[2016-09-05] MEDS ORDERED: Warfarin 2.5 MG Tab PO ONE (13:00)
[2016-09-05] MEDS: Fluconazole/Normal Saline 400 MG in Premix Bag 1 BAG IV SCH (18:04)
[2016-09-05] MEDS: Levofloxacin/Dextrose 5%-Water 500 MG in Premix Bag 1 BAG IV SCH (20:20)
[2016-09-05] MEDS: Montelukast 10 MG Tab PO SCH (20:25)
[2016-09-06] MEDS: Albuterol/Ipratropium 3.0-0.5 MG/3 ML Neb Soln NEB SCH ×4 (07:20→20:42)
[2016-09-06] MEDS: Levothyroxine 100 MCG Tab PO SCH (08:06)
[2016-09-06] MEDS: Pantoprazole 40 MG Tab.CR PO SCH (08:07)
[2016-09-06] MEDS: Aspirin 325 MG Tab.EC PO SCH (08:07)
[2016-09-06] MEDS: Metoprolol Tartrate 25 MG Tab PO SCH ×2 (08:08→20:44)
[2016-09-06] MEDS: Sotalol 80 MG Tab PO SCH ×2 (08:08→20:42)
[2016-09-06] MEDS: PITAVASTATIN CALCIUM 1 MG PO SCH (08:09)
[2016-09-06] MEDS: ALPRAZolam 0.25 MG Tab PO SCH (08:12)
--- NOTE | 2016-09-06 12:44 | PCM.PN ---
- General Info Date of Service: 09/06/16 Functional Status: Reports: ambulating, urinating - Review of Systems General: Reports: Fever. Denies: Weakness, Chills Pulmonary: Reports: shortness of breath, cough, wheezing. Denies: pleuritic chest pain, sputum, hemoptysis Cardiovascular: Reports: Dyspnea on Exertion. Denies: Chest Pain, Palpitations , Orthopnea, PND, Edema, Lightheadedness Gastrointestinal: Reports: No symptoms Systems Review Comment:: This patient has noted improvement since admission with less shortness of breath and cough. Remains on supplemental oxygen but oxygen requirements do seem to be slowly decreasing. He has had a low-grade temperature and white blood cell count remains mildly elevated, vital signs have been stable. - Patient Data Vitals - most recent: Last Vital Signs Temp 99.9 F 09/06/16 11:00 Pulse 60 09/06/16 11:00 Resp 16 09/06/16 11:00 BP 96/52 L 09/06/16 11:00 Pulse Ox 94 L 09/06/16 11:00 Weight - most recent: 229 lb 0.012 oz I&O - last 24 hours: Intake & Output 09/05/16 09/06/16 09/06/16 22:59 06:59 14:59 Intake Total 680 340 480 Output Total 500 1450 Balance 180 -1110 480 Lab Results last 24 hrs: Laboratory Results - last 24 hr 09/05/16 09/06/16 09/06/16 Range/Units 12:33 05:00 05:00 WBC 13.4 H (4.5-11.0) K/uL RBC 4.06 L (4.30-5.90) M/uL Hgb 12.6 (12.0-15.0) g/dL Hct 38.2 L (40.0-54.0) % MCV 94 (80-98) fL MCH 31 (27-31) pg MCHC 33 (32-36) % Plt Count 240 (150-400) K/uL Neut % (Auto) 74 H (36-66) % Lymph % (Auto) 14 L (24-44) % Beaver % (Auto) 11 H (2-6) % Eos % (Auto) 2 (2-4) % Baso % (Auto) 0 (0-1) % PT 11.9 (9.5-12.0) sec INR 1.12 (0.80-1.20) Sodium 136 L (140-148) mmol/L Potassium 4.2 (3.6-5.2) mmol/L Chloride 104 (100-108) mmol/L Carbon Dioxide 27 (21-32) mmol/L Anion Gap 9.2 (5.0-14.0) mmol/L BUN 13 (7-18) mg/dL Creatinine 0.9 (0.8-1.3) mg/dL Est Cr Clr Drug Dosing 72.91 mL/min Estimated GFR (MDRD) > 60 (>60) Glucose 82 (74-106) mg/dL Calcium 7.4 L (8.5-10.1) mg/dL 09/06/16 Range/Units 05:11 WBC (4.5-11.0) K/uL RBC (4.30-5.90) M/uL Hgb (12.0-15.0) g/dL Hct (40.0-54.0) % MCV (80-98) fL MCH (27-31) pg MCHC (32-36) % Plt Count (150-400) K/uL Neut % (Auto) (36-66) % Lymph % (Auto) (24-44) % Beaver % (Auto) (2-6) % Eos % (Auto) (2-4) % Baso % (Auto) (0-1) % PT 12.0 (9.5-12.0) sec INR 1.13 (0.80-1.20) Sodium (140-148) mmol/L Potassium (3.6-5.2) mmol/L Chloride (100-108) mmol/L Carbon Dioxide (21-32) mmol/L Anion Gap (5.0-14.0) mmol/L BUN (7-18) mg/dL Creatinine (0.8-1.3) mg/dL Est Cr Clr Drug Dosing mL/min Estimated GFR (MDRD) (>60) Glucose (74-106) mg/dL Calcium (8.5-10.1) mg/dL Med Orders - Current: Current Medications Acetaminophen (Tylenol) 650 mg PO Q4H PRN PRN Reason: Pain (Mild 1-3)/fever Albuterol (Proventil Neb Soln) 2.5 mg NEB Q4H PRN PRN Reason: Shortness Of Breath/wheezing Albuterol/Ipratropium (Duoneb 3.0-0.5 Mg/3 Ml) 3 ml NEB QIDRT [facility] Last Admin: 09/06/16 10:54 Dose: 3 ml Alprazolam (Xanax) 0.25 mg PO DAILY [facility] Last Admin: 09/06/16 08:12 Dose: 0.25 mg Aspirin (Ecotrin) 325 mg PO DAILY [facility] Last Admin: 09/06/16 08:07 Dose: 325 mg Benazepril HCl (Lotensin) 20 mg PO DAILY [facility] Last Admin: 09/06/16 08:06 Dose: 20 mg Benzonatate (Tessalon Perles) 200 mg PO TID PRN PRN Reason: Cough Last Admin: 09/05/16 20:26 Dose: 200 mg Docusate Sodium (Colace) 100 mg PO BID PRN PRN Reason: Constipation Fluconazole/Sodium Chloride (400 mg/ Premix) 200 mls @ 100 mls/hr IV Q24H [facility] Last Admin: 09/05/16 18:04 Dose: 100 mls/hr Levofloxacin/Dextrose 500 mg/ (Premix) 100 mls @ 100 mls/hr IV Q24H [facility] Last Admin: 09/05/16 20:20 Dose: 100 mls/hr Levothyroxine Sodium (Synthroid) 200 mcg PO DAILY@0730 [facility] Last Admin: 09/06/16 08:06 Dose: 200 mcg Magnesium Hydroxide (Milk Of Magnesia) 30 ml PO Q12H PRN PRN Reason: Constipation Metoprolol Tartrate (Lopressor) 12.5 mg PO BID [facility] Last Admin: 09/06/16 08:08 Dose: 12.5 mg Montelukast Sodium (Singulair) 10 mg PO BEDTIME [facility] Last Admin: 09/05/16 20:25 Dose: 10 mg (Pitavastatin Calcium [Livalo] 1 Mg)*Pom* 1 mg PO DAILY [facility] Last Admin: 09/06/16 08:09 Dose: 1 mg Ondansetron HCl (Zofran) 4 mg IV Q4H PRN PRN Reason: Nausea/Vomiting Oxycodone HCl (Oxycodone) 5 mg PO Q4H PRN PRN Reason: Pain (moderate 4-6) Pantoprazole Sodium (Protonix) 40 mg PO DAILY@0730 [facility] Last Admin: 09/06/16 08:07 Dose: 40 mg Polyethylene Glycol (Miralax) 17 gm PO DAILY PRN PRN Reason: Constipation Sodium Chloride (Saline Flush) 10 ml FLUSH ASDIRECTED PRN PRN Reason: Keep Vein Open Sotalol HCl (Betapace) 120 mg PO BID [facility] Last Admin: 09/06/16 08:08 Dose: 120 mg Discontinued Medications Albuterol (Proventil Neb Soln) 2.5 mg NEB Q4HRRT PRN PRN Reason: Dyspnea Albuterol/Ipratropium (Duoneb 3.0-0.5 Mg/3 Ml) 3 ml NEB ONETIME ONE Stop: 09/04/16 10:45 Last Admin: 09/04/16 10:51 Dose: 3 ml Albuterol/Ipratropium (Duoneb 3.0-0.5 Mg/3 Ml) 3 ml NEB QID [facility] Apixaban (Eliquis) 5 mg PO BID [facility] Enoxaparin Sodium (Lovenox) 40 mg SUBCUT DAILY [facility] Last Admin: 09/04/16 16:31 Dose: 40 mg Lactated Ringer's (Ringers, Lactated) 1,000 mls @ 999 mls/hr IV ASDIRECTED [facility] Last Admin: 09/04/16 10:20 Dose: 999 mls/hr Lactated Ringer's (Ringers, Lactated) 1,000 mls @ 125 mls/hr IV ASDIRECTED [facility] Last Admin: 09/04/16 11:48 Dose: 125 mls/hr Sodium Chloride (Normal Saline) 75 mls @ 3.5 mls/sec IV ASDIRECTED [facility] Stop: 09/04/16 13:00 Last Admin: 09/04/16 12:34 Dose: 3.5 mls/sec Sodium Chloride (Normal Saline) 1,000 mls @ 125 mls/hr IV ASDIRECTED [facility] Last Admin: 09/04/16 16:25 Dose: 125 mls/hr Iopamidol (Isovue-300 (61%)) 100 ml IV . DIRECTED PRN PRN Reason: RADIOLOGY EXAM Stop: 09/05/16 12:14 Last Admin: 09/04/16 12:35 Dose: 100 ml Pantoprazole Sodium (Protonix) 40 mg PO DAILY [facility] Last Admin: 09/04/16 21:12 Dose: 40 mg Sodium Chloride (Saline Flush) 10 ml FLUSH ASDIRECTED PRN PRN Reason: Keep Vein Open Last Admin: 09/04/16 10:20 Dose: 10 ml Sodium Chloride (Saline Flush) 10 ml FLUSH ONETIME PRN PRN Reason: per radiology protocol Last Admin: 09/04/16 12:33 Dose: 10 ml Warfarin Sodium (Coumadin) 7.5 mg PO ONETIME ONE Stop: 09/05/16 13:01 Last Admin: 09/05/16 13:24 Dose: 7.5 mg - Exam Quality Assessment: supplemental oxygen, DVT prophylaxis General: alert, oriented, cooperative, no acute distress Lungs: Normal respiratory effort, Decreased breath sounds, Wheezing. No: Crackles, Rales, Rhonchi, Rub, Stridor Cardiovascular: Regular Rate, Regular Rhythm, No Murmurs Abdomen: bowel sounds present, soft, no tenderness, no distension Extremities: no edema Skin: warm, dry, intact - Problem List Review Problem List Initiated/Reviewed/Updated: Yes - My Orders Last 24 Hours: My Active Orders 09/05/16 12:31 Convert IV to Saline Lock [OM.PC] Routine 09/06/16 07:30 Pantoprazole [ProTONIX] 40 mg PO DAILY@0730 09/06/16 12:41 Warfarin [Coumadin] 7.5 mg PO ONETIME ONE 09/07/16 05:11 INR,PT,PROTHROMBIN TIME [COAG] AM - Plan Plan:: ASSESSMENT AND PLAN COCCIDIOMYCOSIS PULMONARY INFECTION-findings seem to be most consistent with this, including CT scan and history of probable exposure, having spent the winter in [place]. -Fluconazole 400 mg IV every 24 hours -Coccidiomycosis serology pending -Antibiotic coverage with levofloxacin 500 mg IV every 24 hours pending serology HYPOXIC RESPIRATORY FAILURE-secondary to infection as noted above -Supplemental oxygen as needed -Nebulizer therapy with albuterol and duo nebs HISTORY OF PAROXYSMAL ATRIAL FIBRILLATION-Eliquis discontinued -Hold current anticoagulation because of potential interaction with fluconazole -Warfarin 7.5 mg by mouth today -INR in a.m. -Continue other outpatient medical therapy MAINTENANCE ISSUES -DVT prophylaxis;current anticoagulation should provide adequate DVT prophylaxis -GI prophylaxis;none indicated -Palma catheter;not indicated -Nutrition;regular diet -Nicotine dependence;not required CODE STATUS-FULL CODE ADMISSION STATUS-patient will be admitted to inpatient status, expect at least a 2 night hospital stay for evaluation and management of problems as outlined above. At the time of this admission I do not reasonably expected evaluation and management of this problem will require more than a 96 hour hospital stay. DISPOSITION-anticipate discharge to home tomorrow PRIMARY CARE PROVIDER-Dr. Santizo
[2016-09-06] MEDS ORDERED: Warfarin 2.5 MG Tab PO ONE (13:00)
[2016-09-06] MEDS: Fluconazole/Normal Saline 400 MG in Premix Bag 1 BAG IV SCH (17:18)
[2016-09-06] MEDS: Levofloxacin/Dextrose 5%-Water 500 MG in Premix Bag 1 BAG IV SCH (19:38)
[2016-09-06] MEDS: Montelukast 10 MG Tab PO SCH (20:45)
[2016-09-07] MEDS: Albuterol/Ipratropium 3.0-0.5 MG/3 ML Neb Soln NEB SCH ×2 (07:09→10:30)
[2016-09-07] MEDS: Levothyroxine 100 MCG Tab PO SCH (08:09)
[2016-09-07] MEDS: Pantoprazole 40 MG Tab.CR PO SCH (08:09)
[2016-09-07] MEDS: Sotalol 80 MG Tab PO SCH (08:10)
[2016-09-07] MEDS: Aspirin 325 MG Tab.EC PO SCH (08:14)
[2016-09-07] MEDS: Metoprolol Tartrate 25 MG Tab PO SCH (08:14)
[2016-09-07] MEDS: PITAVASTATIN CALCIUM 1 MG PO SCH (08:14)
[2016-09-07] MEDS: ALPRAZolam 0.25 MG Tab PO SCH (08:18)
[2016-09-07 10:51] VITALS: BP 107/66
--- NOTE | 2016-09-07 12:16 | PCM.DCSUM1 ---
Discharge Summary - Hospital Course Brief History: This patient is a 75-year-old gentleman who was admitted through the emergency room because of progressive dyspnea, hypoxia, cough, fever and sweats. - Discharge Data Discharge Date: 09/07/16 Discharge Disposition: Home, Self-Care 01 Condition: Fair - Discharge Diagnosis/Problem(s) (1) Coccidioidomycosis, primary pulmonary SNOMED Code(s): 81424726 ICD Code: B38.2 - PULMONARY COCCIDIOIDOMYCOSIS, UNSPECIFIED Status: Acute Current Visit: Yes (2) SOB (shortness of breath) SNOMED Code(s): 136561958 ICD Code: R06.02 - SHORTNESS OF BREATH Status: Acute Current Visit: Yes - Patient Summary/Data Hospital Course: This patient is a 75-year-old gentleman who has had ongoing progressive difficulty with respiratory symptoms for the past several weeks. He had spent the winter months in [place] did develop respiratory tract infection and was treated with azithromycin, symptoms improved with antibiotic therapy. Shortly after that though developed recurrent symptoms, as they were in the process of returning to [place] he did not seek medical care again in [place]. When he arrived back and seen and evaluated in the clinic, appropriately treated with antibiotics, but unfortunately had no significant clinical improvement and in fact continue to show progressive worsening of symptoms. He was referred to the emergency department for further evaluation and management of his respiratory compromise with hypoxia. Chest x-ray she showed perhaps a vague infiltrate in the chest, white blood cell count was found to be elevated and hypoxia was confirmed. CT scan of the chest showed infiltrate in the left upper lung with a small cavitary lesion, findings consistent with coccidiomycosis. Certainly his recent history of living in [place] would also be consistent with this infection. Serologies for coccidiomycosis were sent to the reference lab, results are pending at the time of discharge. He was treated with IV antibiotic therapy to cover for the possibility of bacterial infection pending serology results and will be discharged home on levofloxacin pending these results. He was started on IV fluconazole 400 mg daily and will be discharged to home on fluconazole 400 mg daily for anticipated treatment duration of 3 months. He does of potential interaction with the fluconazole and Eliquis, the Eliquis was discontinued. He was started on oral anticoagulation with warfarin to replace the medication and because of his underlying atrial fibrillation. Followup appointment has already been scheduled with Dr. Santizo for September 10. He will take warfarin 5 mg daily until September 10 and a appointment will be scheduled with physical clinic. Please consider followup CT scan of the lungs in one to 2 months to make sure that the small area of cavitation has resolved or improved. - Patient Instructions Diet: Usual Diet as Tolerated Activity: As Tolerated Other/Special Instructions: Patient already has followup appointment scheduled with Dr. Santizo for September 10. Please schedule Coumadin clinic appointment in [place] for September 10. - Discharge Plan Prescriptions/Med Rec: Fluconazole [Diflucan] 400 mg PO DAILY #28 tablet Warfarin [Coumadin] 5 mg PO DAILY #60 tablet Home Medications: Home Meds ALPRAZolam [Xanax] 0.25 mg PO DAILY 09/04/16 [History] Albuterol Sulfate [Proair Respiclick] 2 puff INH ASDIRECTED 09/04/16 [History] Albuterol/Ipratropium [DuoNeb 3.0-0.5 MG/3 ML] 3 ml INH BID 09/04/16 [History] Aspirin 325 mg PO DAILY 09/04/16 [History] Benazepril [Lotensin] 20 mg PO DAILY 09/04/16 [History] Benzonatate [Tessalon Perles] 200 mg PO TID PRN 09/04/16 [History] Fexofenadine [Lynn] 180 mg PO DAILY 09/04/16 [History] Fluticasone Furoate [Arnuity Ellipta] 1 puff INH DAILY 09/04/16 [History] Levofloxacin 500 mg PO DAILY 09/04/16 [History] Levothyroxine Sodium [Synthroid] 200 mcg PO DAILY 09/04/16 [History] Metoprolol Tartrate 12.5 mg PO BID 09/04/16 [History] Montelukast [Singulair] 10 mg PO DAILY 09/04/16 [History] Multivitamin [Multivitamins] 1 tab PO DAILY 09/04/16 [History] Pitavastatin Calcium [Livalo] 1 mg PO DAILY 09/04/16 [History] Sotalol HCl [Sotalol AF] 120 mg PO BID 09/04/16 [History] Tamsulosin [Flomax] 0.4 mg PO DAILY 09/04/16 [History] Fluconazole [Diflucan] 400 mg PO DAILY #28 tablet 09/07/16 [Rx] Warfarin [Coumadin] 5 mg PO DAILY #60 tablet 09/07/16 [Rx] Forms: ED Department Discharge Referrals: Ventura Santizo MD [Primary Care Provider] - - Patient Data Vitals - Most Recent: Last Vital Signs Temp 98.6 F 09/07/16 10:50 Pulse 87 09/07/16 10:50 Resp 18 09/07/16 10:50 BP 107/66 09/07/16 10:50 Pulse Ox 96 09/07/16 10:50 Weight - Most Recent: 229 lb 0.012 oz I&O - Last 24 hours: Intake & Output 09/06/16 09/07/16 09/07/16 22:59 06:59 14:59 Intake Total 1260 240 Output Total 400 Balance 860 240 Lab Results - Last 24 hrs: Laboratory Results - last 24 hr 09/07/16 Range/Units 05:15 PT 18.1 H (9.5-12.0) sec INR 1.68 H (0.80-1.20) Med Orders - Current: Current Medications Acetaminophen (Tylenol) 650 mg PO Q4H PRN PRN Reason: Pain (Mild 1-3)/fever Last Admin: 09/07/16 09:23 Dose: 650 mg Albuterol (Proventil Neb Soln) 2.5 mg NEB Q4H PRN PRN Reason: Shortness Of Breath/wheezing Albuterol/Ipratropium (Duoneb 3.0-0.5 Mg/3 Ml) 3 ml NEB QIDRT [facility] Last Admin: 09/07/16 10:30 Dose: 3 ml Alprazolam (Xanax) 0.25 mg PO DAILY [facility] Last Admin: 09/07/16 08:18 Dose: 0.25 mg Aspirin (Ecotrin) 325 mg PO DAILY [facility] Last Admin: 09/07/16 08:14 Dose: 325 mg Benazepril HCl (Lotensin) 20 mg PO DAILY [facility] Last Admin: 09/07/16 08:14 Dose: 20 mg Benzonatate (Tessalon Perles) 200 mg PO TID PRN PRN Reason: Cough Last Admin: 09/05/16 20:26 Dose: 200 mg Docusate Sodium (Colace) 100 mg PO BID PRN PRN Reason: Constipation Fluconazole/Sodium Chloride (400 mg/ Premix) 200 mls @ 100 mls/hr IV Q24H [facility] Last Admin: 09/06/16 17:18 Dose: 100 mls/hr Levofloxacin/Dextrose 500 mg/ (Premix) 100 mls @ 100 mls/hr IV Q24H [facility] Last Admin: 09/06/16 19:38 Dose: 100 mls/hr Levothyroxine Sodium (Synthroid) 200 mcg PO DAILY@0730 [facility] Last Admin: 09/07/16 08:09 Dose: 200 mcg Magnesium Hydroxide (Milk Of Magnesia) 30 ml PO Q12H PRN PRN Reason: Constipation Metoprolol Tartrate (Lopressor) 12.5 mg PO BID [facility] Last Admin: 09/07/16 08:14 Dose: 12.5 mg Montelukast Sodium (Singulair) 10 mg PO BEDTIME [facility] Last Admin: 09/06/16 20:45 Dose: 10 mg (Pitavastatin Calcium [Livalo] 1 Mg)*Pom* 1 mg PO DAILY [facility] Last Admin: 09/07/16 08:14 Dose: 1 mg Ondansetron HCl (Zofran) 4 mg IV Q4H PRN PRN Reason: Nausea/Vomiting Oxycodone HCl (Oxycodone) 5 mg PO Q4H PRN PRN Reason: Pain (moderate 4-6) Pantoprazole Sodium (Protonix) 40 mg PO DAILY@0730 [facility] Last Admin: 09/07/16 08:09 Dose: 40 mg Polyethylene Glycol (Miralax) 17 gm PO DAILY PRN PRN Reason: Constipation Sodium Chloride (Saline Flush) 10 ml FLUSH ASDIRECTED PRN PRN Reason: Keep Vein Open Sotalol HCl (Betapace) 120 mg PO BID [facility] Last Admin: 09/07/16 08:10 Dose: 120 mg Warfarin Sodium (Coumadin) 5 mg PO ONETIME ONE Stop: 09/07/16 13:01 Discontinued Medications Albuterol (Proventil Neb Soln) 2.5 mg NEB Q4HRRT PRN PRN Reason: Dyspnea Albuterol/Ipratropium (Duoneb 3.0-0.5 Mg/3 Ml) 3 ml NEB ONETIME ONE Stop: 09/04/16 10:45 Last Admin: 09/04/16 10:51 Dose: 3 ml Albuterol/Ipratropium (Duoneb 3.0-0.5 Mg/3 Ml) 3 ml NEB QID [facility] Apixaban (Eliquis) 5 mg PO BID [facility] Enoxaparin Sodium (Lovenox) 40 mg SUBCUT DAILY [facility] Last Admin: 09/04/16 16:31 Dose: 40 mg Lactated Ringer's (Ringers, Lactated) 1,000 mls @ 999 mls/hr IV ASDIRECTED [facility] Last Admin: 09/04/16 10:20 Dose: 999 mls/hr Lactated Ringer's (Ringers, Lactated) 1,000 mls @ 125 mls/hr IV ASDIRECTED [facility] Last Admin: 09/04/16 11:48 Dose: 125 mls/hr Sodium Chloride (Normal Saline) 75 mls @ 3.5 mls/sec IV ASDIRECTED [facility] Stop: 09/04/16 13:00 Last Admin: 09/04/16 12:34 Dose: 3.5 mls/sec Sodium Chloride (Normal Saline) 1,000 mls @ 125 mls/hr IV ASDIRECTED [facility] Last Admin: 09/04/16 16:25 Dose: 125 mls/hr Iopamidol (Isovue-300 (61%)) 100 ml IV . DIRECTED PRN PRN Reason: RADIOLOGY EXAM Stop: 09/05/16 12:14 Last Admin: 09/04/16 12:35 Dose: 100 ml Pantoprazole Sodium (Protonix) 40 mg PO DAILY [facility] Last Admin: 09/04/16 21:12 Dose: 40 mg Sodium Chloride (Saline Flush) 10 ml FLUSH ASDIRECTED PRN PRN Reason: Keep Vein Open Last Admin: 09/04/16 10:20 Dose: 10 ml Sodium Chloride (Saline Flush) 10 ml FLUSH ONETIME PRN PRN Reason: per radiology protocol Last Admin: 09/04/16 12:33 Dose: 10 ml Warfarin Sodium (Coumadin) 7.5 mg PO ONETIME ONE Stop: 09/05/16 13:01 Last Admin: 09/05/16 13:24 Dose: 7.5 mg Warfarin Sodium (Coumadin) 7.5 mg PO ONETIME ONE Stop: 09/06/16 13:01 Last Admin: 09/06/16 13:53 Dose: 7.5 mg *Q Meaningful Use (DIS) - VTE *Q VTE Criteria *Q: VTE Pharmacological Contraindications *Q: High INR Value - Stroke *Q Stroke Criteria *Q: - AMI *Q AMI Criteria *Q:
[2016-09-07] MEDS ORDERED: Warfarin 5 MG Tab PO ONE (13:00)
== END 2016-09-07 13:51 | disposition home or self-care (01) | DRG 177 ==
LOC: JP.ED 09:42 → JP.MS 12:36
PROVIDERS: ADMIT Hospitalist; ATTEND Hospitalist
DX: B38.2 Pulmonary coccidioidomycosis, unspecified (principal); J96.91 Respiratory failure, unspecified with hypoxia; I10 Essential (primary) hypertension; E03.9 Hypothyroidism, unspecified; I48.0 Paroxysmal atrial fibrillation; Z79.01 Long term (current) use of anticoagulants; J45.909 Unspecified asthma, uncomplicated; M54.9 Dorsalgia, unspecified; G89.29 Other chronic pain; E78.00 Pure hypercholesterolemia, unspecified; Z98.1 Arthrodesis status; Z85.46 Personal history of malignant neoplasm of prostate; Z92.3 Personal history of irradiation; Z96.659 Presence of unspecified artificial knee joint; Z79.82 Long term (current) use of aspirin; Z79.52 Long term (current) use of systemic steroids; Z88.0 Allergy status to penicillin; Z88.8 Allergy status to other drugs, medicaments and biological substances
CPT/HCPCS: 36415; 36600; 71020 ×2; 71260 ×2; 80053; 82803; 83605; 84484; 85025; 85610; 85730; 87040 ×2; 94640; 96360; 96361; 99283; 99285; J7030; J7050 ×2; J7120 ×2; J7620; Q9967; 80048; 81001; 86635; 86635-59; 94762; A9270-GY; J1450; J1650; J1956; J7040

== ENCOUNTER 2019-02-15 14:04 | Emergency (ER) | payer MEDICARE, BC ==
[2019-02-15] MEDS ORDERED: Nitroglycerin 0.4 MG Tab.SL SL PRN (14:37)
[2019-02-15] MEDS ORDERED: Aspirin 81 MG Tab.Chew PO ONE (14:37)
[2019-02-15] MEDS ORDERED: Sodium Chloride 0.9% 10 ML Syringe FLUSH PRN (14:37)
[2019-02-15] MEDS ORDERED: Acetaminophen 500 MG Tab PO ONE (14:42)
--- NOTE | 2019-02-15 14:42 | EDM.PDOC ---
ED HPI GENERAL MEDICAL PROBLEM - General Chief Complaint: Chest Pain Stated Complaint: CHEST PAIN, SOB, HEADACHE, FATIGUE Time Seen by Provider: 02/15/19 14:25 Source of Information: Reports: Patient History Limitations: Reports: No Limitations - History of Present Illness INITIAL COMMENTS - FREE TEXT/NARRATIVE: 78 yo male presents with mild left sided chest pain and slight headache. He woke this morning feeling normal and developed a mild headache and intermitent left sided non radiating chest pain. mild SOB "feels a need to take deep breath " seasonal allergies with cough. mHx of hyperlipidemia and obstructed sleep apnea. denies N/V/D - Related Data Allergies Allergy/AdvReac Type Severity Reaction Status Date / Time atorvastatin Allergy Cannot Verified 02/15/19 14:12 Remember Penicillins Allergy Cannot Verified 02/15/19 14:12 Remember simvastatin Allergy Cannot Verified 02/15/19 14:12 Remember Home Meds: Home Meds ALPRAZolam [Xanax] 0.25 mg PO DAILY PRN 09/04/16 [History] Albuterol Sulfate [Proair Respiclick] 2 puff INH ASDIRECTED 09/04/16 [History] Albuterol/Ipratropium [DuoNeb 3.0-0.5 MG/3 ML] 3 ml INH BID 09/04/16 [History] Aspirin 81 mg PO DAILY 09/04/16 [History] Benazepril [Lotensin] 20 mg PO DAILY 09/04/16 [History] Fexofenadine [Lynn] 180 mg PO DAILY 09/04/16 [History] Levothyroxine Sodium [Synthroid] 200 mcg PO DAILY 09/04/16 [History] Montelukast [Singulair] 10 mg PO DAILY 09/04/16 [History] Multivitamin [Multivitamins] 1 tab PO DAILY 09/04/16 [History] Pitavastatin Calcium [Livalo] 1 mg PO DAILY 09/04/16 [History] Tamsulosin [Flomax] 0.4 mg PO DAILY 09/04/16 [History] Benazepril [Lotensin] 1 tab PO DAILY 02/15/19 [History] Fluticasone/Vilanterol [Breo Ellipta 100-25 MCG Inhalation Kit] 1 puff INH DAILY 02/15/19 [History] Meloxicam 1 tab PO DAILY 02/15/19 [History] Past Medical History HEENT History: Reports: Cataract Cardiovascular History: Reports: Afib, High Cholesterol, Hypertension Respiratory History: Reports: Asthma Musculoskeletal History: Reports: Back Pain, Chronic Endocrine/Metabolic History: Reports: Hypothyroidism Oncologic (Cancer) History: Reports: Prostate Other Oncologic History: 2014 - Past Surgical History Cardiovascular Surgical History: Reports: Other (See Below) Other Cardiovascular Surgeries/Procedures: ablasion GI Surgical History: Reports: Appendectomy, Cholecystectomy Musculoskeletal Surgical History: Reports: Knee Replacement Oncologic Surgical History: Reports: Other (See Below) Social & Family History - Family History HEENT: Reports: Cataract, Hearing Impairment Cardiac: Reports: CAD Musculoskeletal: Reports: Arthritis, Back pain, Chronic Neurological: Reports: Neuropathy, Diabetic Endocrine/Metabolic: Reports: Diabetes, type II, Hypothyroidism - Tobacco Use Smoking Status *Q: Never Smoker - Caffeine Use Caffeine Use: Reports: None Other Caffeine Use: 1cup/day ED ROS GENERAL - Review of Systems Review Of Systems: See Below Constitutional: Denies: Fever, Chills HEENT: Reports: Rhinitis Respiratory: Reports: Shortness of Breath Cardiovascular: Reports: Chest Pain. Denies: Palpitations GI/Abdominal: Denies: Abdominal Pain ED EXAM, GENERAL - Physical Exam Exam: See Below Exam Limited By: No Limitations General Appearance: Alert, WD/WN, No Apparent Distress Head: Atraumatic, Normocephalic Respiratory/Chest: No Respiratory Distress, Lungs Clear, Normal Breath Sounds, No Accessory Muscle Use, Chest Non-Tender. No: Crackles, Rhonchi, Wheezing Cardiovascular: Normal Peripheral Pulses, Regular Rate, Rhythm, No Edema, No Murmur GI/Abdominal: Normal Bowel Sounds, Soft, Non-Tender Neurological: Alert, Oriented Psychiatric: Normal Affect, Normal Mood Skin Exam: Warm, Dry, Intact Course - Vital Signs Last Recorded V/S: Last Vital Signs Temp 36.1 C 02/15/19 14:22 Pulse 73 02/15/19 14:53 Resp 19 02/15/19 15:51 BP 120/79 02/15/19 15:51 Pulse Ox 96 02/15/19 14:53 - Orders/Labs/Meds Orders: Active Orders 24 hr Category Date Time Status Cardiac Monitoring [RC] .As Directed Care 02/15/19 14:37 Active EKG Documentation Completion [RC] ASDIRECTED Care 02/15/19 14:38 Active Nitroglycerin [Nitrostat] Med 02/15/19 14:37 Active 0.4 mg SL Q5M PRN Sodium Chloride 0.9% [Normal Saline] 1,000 ml Med 02/15/19 14:45 Active IV ASDIRECTED Sodium Chloride 0.9% [Saline Flush] Med 02/15/19 14:37 Active 10 ml FLUSH ASDIRECTED PRN Saline Lock Insert [OM.PC] Stat Oth 02/15/19 14:37 Ordered EKG 12 Lead [EK] Stat Ther 02/15/19 14:38 Ordered Medication Orders Sodium Chloride (Normal Saline) 1,000 mls @ 125 mls/hr IV ASDIRECTED KACEY Last Admin: 02/15/19 14:56 Dose: 125 mls/hr Nitroglycerin (Nitrostat) 0.4 mg SL Q5M PRN PRN Reason: Chest Pain Stop: 02/16/19 14:38 Last Admin: 02/15/19 14:58 Dose: 0.4 mg Sodium Chloride (Saline Flush) 10 ml FLUSH ASDIRECTED PRN PRN Reason: Keep Vein Open Last Admin: 02/15/19 14:56 Dose: 10 ml Labs: Laboratory Tests 02/15/19 02/15/19 02/15/19 Range/Units 14:56 14:56 15:48 WBC 7.6 (4.5-11.0) K/uL RBC 4.66 (4.30-5.90) M/uL Hgb 14.1 (12.0-15.0) g/dL Hct 42.4 (40.0-54.0) % MCV 91 (80-98) fL MCH 30 (27-31) pg MCHC 33 (32-36) % Plt Count 257 (150-400) K/uL Neut % (Auto) 63 (36-66) % Lymph % (Auto) 23 L (24-44) % Waller % (Auto) 11 H (2-6) % Eos % (Auto) 3 (2-4) % Baso % (Auto) 0 (0-1) % Sodium 137 L (140-148) mmol/L Potassium 4.1 (3.6-5.2) mmol/L Chloride 102 (100-108) mmol/L Carbon Dioxide 25 (21-32) mmol/L Anion Gap 14.1 H (5.0-14.0) mmol/L BUN 11 (7-18) mg/dL Creatinine 0.8 (0.8-1.3) mg/dL Est Cr Clr Drug Dosing 73.65 mL/min Estimated GFR (MDRD) > 60 (>60) Glucose 83 (74-106) mg/dL Calcium 8.3 L (8.5-10.1) mg/dL Total Bilirubin 0.5 (0.2-1.0) mg/dL AST 29 (15-37) U/L ALT 44 (12-78) U/L Alkaline Phosphatase 85 (46-116) U/L CK-MB (CK-2) 4.1 H (0-3.6) mg/mL Troponin I < 0.017 < 0.017 (0.000-0.056) ng/mL Total Protein 7.1 (6.4-8.2) g/dL Albumin 3.8 (3.4-5.0) g/dL Globulin 3.3 (2.3-3.5) g/dL Albumin/Globulin Ratio 1.2 (1.2-2.2) Meds: Medications Generic Name Dose Route Start Last Admin Trade Name Freq PRN Reason Stop Dose Admin Sodium Chloride 1,000 mls @ 125 mls/hr 02/15/19 14:45 02/15/19 14:56 Normal Saline IV 125 mls/hr ASDIRECTED KACEY Administration Nitroglycerin 0.4 mg 02/15/19 14:37 02/15/19 14:58 Nitrostat SL 02/16/19 14:38 0.4 mg Q5M PRN Administration Chest Pain Sodium Chloride 10 ml 02/15/19 14:37 02/15/19 14:56 Saline Flush FLUSH 10 ml ASDIRECTED PRN Administration Keep Vein Open Discontinued Medications Generic Name Dose Route Start Last Admin Trade Name Freq PRN Reason Stop Dose Admin Acetaminophen 1,000 mg 02/15/19 14:42 02/15/19 14:56 Tylenol Extra Strength PO 02/15/19 14:43 1,000 mg ONETIME ONE Administration Aspirin 324 mg 02/15/19 14:37 02/15/19 14:55 Aspirin PO 02/15/19 14:38 324 mg ONETIME ONE Administration - Re-Assessments/Exams Free Text/Narrative Re-Assessment/Exam: 02/15/19 16:48 serial trp are negative. no reoccurrence of chest pain, headache resolved. pt will follow-up with PCP this week Departure - Departure Time of Disposition: 16:49 Disposition: Home, Self-Care 01 Condition: Good Clinical Impression: Chest pain Qualifiers: Chest pain type: unspecified Qualified Code(s): R07.9 - Chest pain, unspecified Instructions: Angina Pectoris, [id number] Referrals: Ventura Santizo MD [Primary Care Provider] - Forms: ED Department Discharge Additional Instructions: encouraged fluid intake with addition of sports drink per day follow-up with primary care or return to Emergency room with return of symptoms or if you feel you have not returned to your normal energy level - My Orders Last 24 Hours: My Active Orders 02/15/19 14:37 Cardiac Monitoring [RC] .As Directed Nitroglycerin [Nitrostat] 0.4 mg SL Q5M PRN Sodium Chloride 0.9% [Saline Flush] 10 ml FLUSH ASDIRECTED PRN Saline Lock Insert [OM.PC] Stat 02/15/19 14:38 EKG Documentation Completion [RC] ASDIRECTED EKG 12 Lead [EK] Stat 02/15/19 14:45 Sodium Chloride 0.9% [Normal Saline] 1,000 ml IV ASDIRECTED - Assessment/Plan Last 24 Hours: My Active Orders 02/15/19 14:37 Cardiac Monitoring [RC] .As Directed Nitroglycerin [Nitrostat] 0.4 mg SL Q5M PRN Sodium Chloride 0.9% [Saline Flush] 10 ml FLUSH ASDIRECTED PRN Saline Lock Insert [OM.PC] Stat 02/15/19 14:38 EKG Documentation Completion [RC] ASDIRECTED EKG 12 Lead [EK] Stat 02/15/19 14:45 Sodium Chloride 0.9% [Normal Saline] 1,000 ml IV ASDIRECTED
[2019-02-15] MEDS ORDERED: Sodium Chloride 0.9% 1,000 ML IV SCH (14:45)
[2019-02-15 14:54] VITALS: PULSE 73
--- NOTE | 2019-02-15 15:15 | CRLCR ---
INDICATION: Chest pain COMPARISON: 12/28/2017 FINDINGS: An erect single view of the chest was obtained at 1458 hours. The lungs remain clear. No focal or diffuse infiltrates are present. The heart remains normal in size. The mediastinum is normal in appearance. Again seen is a metallic plate from anterior cervical fusion. The osseous structures are otherwise normal in appearance for the patient`s age. IMPRESSION: No active disease seen in the chest. Dictated by Jason Wagoner MD @ Feb 15 2019 3:12PM Signed by Dr. Jason Wagoner @ Feb 15 2019 3:13PM
[2019-02-15 16:12] VITALS: BP 120/79
== END 2019-02-15 17:14 | disposition home or self-care (01) ==
LOC: JP.ED 14:04
DX: R07.9 Chest pain, unspecified (principal); E03.9 Hypothyroidism, unspecified; I10 Essential (primary) hypertension; I48.91 Unspecified atrial fibrillation; J45.909 Unspecified asthma, uncomplicated; Z79.82 Long term (current) use of aspirin; Z79.899 Other long term (current) drug therapy; Z79.51 Long term (current) use of inhaled steroids; Z79.84 Long term (current) use of oral hypoglycemic drugs; Z79.890 Hormone replacement therapy; Z88.0 Allergy status to penicillin; Z88.8 Allergy status to other drugs, medicaments and biological substances
CPT/HCPCS: 36415; 71045; 80053; 82553; 84484; 85025; 93005; 96360; 96361; 99285; A9270; J7030; 93010; 99284